=== PATIENT | male | born 1970 | race Caucasian/White ===

== ENCOUNTER 2018-08-27 08:52 | Day surgery (SDC) | payer BC ==
[~2018-08-27 08:52] MED LIST: CEFAZOLIN 1G VIAL IVP ONE; CELECOXIB 100 MG CAPSULE PO ONE; FAMOTIDINE 20MG TABLET PO ONE; MECLIZINE 25 MG TABLET PO ONE; METOCLOPRAMIDE 10 MG TABLET PO ONE; VANCOMYCIN HCL 1,000 MG in DEXTROSE 5 % IN WATER 250 ML IVPB ONE; WATER STERILE FOR INJECTION 20 ML VIAL MC ONE
[2018-08-27] MEDS ORDERED: ALBUTEROL HFA 8 GM INHALER INH ONE (08:53)
[2018-08-27] MEDS ORDERED: LIDOCAINE 2% MDV (20MG/ML) 20ML VIAL IV ONE (08:53)
[2018-08-27] MEDS ORDERED: TRANEXAMIC ACID 1,000 MG/10 ML ML IV ONE (08:53)
[2018-08-27] MEDS ORDERED: PROPOFOL 10 MG/ML VIAL IV ONE (08:53)
[2018-08-27] MEDS ORDERED: FENTANYL PF 100MCG/2ML VIAL IV ONE (08:53)
[2018-08-27] MEDS ORDERED: MIDAZOLAM HCL 2MG/2ML VIAL IV ONE (08:53)
[2018-08-27] MEDS ORDERED: VANCOMYCIN HCL 1,000 MG in DEXTROSE 5 % IN WATER 250 ML IVPB ONE ×2 (09:00)
[2018-08-27] MEDS ORDERED: RINGERS SOLUTION,LACTATED 1,000 ML IV ONE ×3 (09:30→13:02)
[2018-08-27 09:35] LABS: ABO GROUP O; RH TYPE POSITIVE
[2018-08-27 09:36] LABS: ANTIBODY SCREEN NEGATIVE (NEGATIVE)
[2018-08-27] MEDS ORDERED: BUPIVACAINE 0.5% W/EPI MPF 30 ML VIAL SQ ONE (11:26)
[2018-08-27] MEDS ORDERED: BISACODYL 10 MG SUPP RC PRN (13:20)
[2018-08-27] MEDS ORDERED: NALOXONE 0.4 MG/1 ML VIAL IVP PRN (13:20)
[2018-08-27] MEDS ORDERED: KETOROLAC 30 MG/ML VIAL IVP PRN ×2 (13:20)
[2018-08-27] MEDS ORDERED: ACETAMINOPHEN W/ CODEINE 300MG/60MG TABLET PO PRN ×2 (13:20)
[2018-08-27] MEDS ORDERED: ZOLPIDEM TARTRATE 5 MG TABLET PO PRN (13:20)
[2018-08-27] MEDS ORDERED: TRAMADOL HCL 50 MG TABLET PO PRN (13:20)
[2018-08-27] MEDS ORDERED: ONDANSETRON HCL IV 4 MG/2 ML VIAL IVP PRN (13:20)
[2018-08-27] MEDS ORDERED: ACETAMINOPHEN 325 MG TAB PO PRN (13:20)
[2018-08-27] MEDS ORDERED: HYDROMORPHONE HCL 2 MG/ML VIAL IM PRN (13:20)
[2018-08-27] MEDS ORDERED: DIPHENHYDRAMINE HCL 25 MG CAPSULE PO PRN (13:20)
[2018-08-27] MEDS ORDERED: MAGNESIUM HYDROXIDE 30 ML UDC PO PRN (13:20)
[2018-08-27] MEDS ORDERED: HYDROCODONE/APAP 10/325 TABLET PO PRN (13:20)
[2018-08-27] MEDS ORDERED: AL HYDROX/MAG HYDROX 30ML UD PO PRN (13:20)
[2018-08-27] MEDS ORDERED: HYDROMORPHONE HCL 2 MG/ML VIAL IM ONE (13:28)
[2018-08-27] MEDS ORDERED: HYDROMORPHONE HCL 2 MG/ML VIAL IVP ONE (13:28)
[2018-08-27] MEDS ORDERED: CEFAZOLIN 2 Gram 2 GM/50 ML BAG IVPB SCH (13:30)
[2018-08-27] MEDS ORDERED: KETOROLAC 30 MG/ML VIAL IVP ONE (13:42)
[2018-08-27] MEDS: HYDROCODONE/APAP 10/325 TABLET PO PRN ×2 (15:24→19:57)
--- NOTE | 2018-08-27 16:35 | Rehab Evaluation ---
Patient Information - Patient Information Diagnosis: DJD of R Knee Ordered Treatment: PT Evaluate and Treat Status: Initial Evaluation Surgery: Yes (R TKA ) Date of Surgery: 08/27/18 History: Detail Past Medical/Surgical Hx: PAST MEDICAL/SURGICAL HISTORY Past Surgical History rt ACL repair-age 20; left shoulder sx x 2; anesthesia to reduce left shoulder-dislocation x10; spontaneous pneumothorax-not sx; hernia sx age 6 months. PMH - Respiratory Hx Respiratory Disorders No Comment: spontaneous pneumothorax with chest tube 2001 PMH - Cardiovascular Hx Cardiovascular Disorders No Exercise Tolerance Good PMH - Neuro Hx Neurological Disorders Yes Hx Weakness Yes: rt knee only PMH - GI Hx Gastrointestinal Disorders Yes Hx Gastroesophageal Reflux Yes: prilosec for acid reflux PMH - Hx Genitourinary Disorders No PMH - Endocrine Hx Endocrine Disorders No PMH - Musculoskeletal Hx Musculoskeletal Disorders Yes Hx Arthritis Yes: rt knee & lt shoulder PMH - Psych Hx Psychiatric Problems No PMH - Hematology/Oncology Hx Hematology/Oncology No Disorders Premorbid Status: Detail (Patient was independent with all activities. Patient reported that he was active playing baseball and golf.) Social History: Detail (Patient lives in a 2 story home with his significant other, whom was present in patient's room during evaluation. Patient reported that he will not be using both levels immediately after surgery. Patient reports that there are two levels of stairs entering the home. First level consists of 5 steps with 1 railing and a broad landing the levels. The second level of steps consists of 5 steps with bilateral rails. Patient reports that he has a tub/shower combination in his home; however, there are no grab bars present. Patient also has an elevated toilet seat but does not have grab bars near the toilet either. Patient reports that he has a walker, cane, and shower bench to utilize at home. Patient is currently employed and is expected to return back to work within 4-8 weeks. Patient reports that he will be returning home from the hospital in an [facility].) Precautions: Other (weight bearing as tolerated; R lower extremity) - Time With Patient Total Time Spent With Patient (Min): 25 Subjective Information - Subjective Information Per Patient (Patient reported that he was feeling well and did not report any pain during the initial portion of the evaluation. During ambulation patient did report some pain above right knee and reported that it felt musculature.) Objective Data - Mental Status Patient Orientation: Oriented x3 - Visual Perception Appears within normal limits for therapeutic activities - ROM Not within normal limits (Right knee range of motion was limited as expected status post-surgery. All other range of motion in LE were WNL.) - Strength/Tone Not within normal limits (Strength was not assessed due to status post-surgery of right knee. However, functionally assessed with straight leg raise and during ambulation. Patient's left lower extremity functionally was within normal limits due to ambulatory abilities.) - Coordination Appears within normal limits for therapeutic activities - Bed Mobility Independent (Patient required guidance with IV. However, was independent with transfer to and from supine to sitting on left side EOB.) - Transfers Independent (Patient independently transfered to and from sitting left EOB to standing.) - Sensation Intact (Patient's sensation of R LE was assessed. Patient reported all sensation to be WNL.) - Gait Detail (Patient ambulated with 2 wheeled walker, WBAT on R LE, with supervision x1 for safety a total of 240 feet.) Therapy Assessment - Therapy Assessment Detail (Patient did very well with evaluation and showed great endurance and tolerance. Patient would benefit from follow up therapy session to assess healing and progress following surgery prior to discharge for home PT.) Patient Education - Patient Education Teaching Topic: Exercise/Activity (Patient was educated on home exercises of SLR, isometric quad set, and ankle pumps. Patient was educated that he is able to practice these exercises in bed when able to.) Problem List - Problem List Physical Therapy Problem List: Detail (1. Antalgic gait due to status post- surgery, as expected. 2. Limited AROM due to status post-surgery 3. Altered coordination due to compensation for knee pain prior to surgery) Goals - Goals Physical Therapy Goals: 1. Patient will be independent with TKA exercises for home exercise program. 2. Patient will ascend and descend 10 stairs using 1 railing with supervision x1 for safety to help with discharge home. Prognosis - Prognosis Good (Patient did great during evaluation today and appears to be motivated. Patient is expected to continue to progress and regain strength.) Plan - Plan Physical Therapy Plan: Patient would benefit from additional visit for physical therapy prior to discharge for home therapy. Therapy will consist of focusing on education of home exercise program and ensuring that patient knows how to properly complete all exercises independently. Therapy will also focus on ascending and descending stairs to help aide in transition to home.
[2018-08-27] MEDS: POTASSIUM CHLORIDE/D5-0.9%NACL 20 MEQ/1,000 ML BAG IV SCH (19:29)
[2018-08-27] MEDS: CEFAZOLIN 1G VIAL IVP SCH (19:54)
[2018-08-27] MEDS: DOCUSATE SODIUM 100 MG CAPSULE PO SCH (22:38)
[2018-08-28] MEDS: HYDROCODONE/APAP 10/325 TABLET PO PRN ×4 (00:03→13:14)
[2018-08-28] MEDS: POTASSIUM CHLORIDE/D5-0.9%NACL 20 MEQ/1,000 ML BAG IV SCH ×2 (03:00→09:49)
[2018-08-28] MEDS: CEFAZOLIN 1G VIAL IVP SCH ×2 (04:19→11:22)
[2018-08-28 07:00] LABS: HEMATOCRIT 35.1 % (42.0-52.0); HEMOGLOBIN 11.1 gm/dl (14.0-18.0)
[2018-08-28] MEDS ORDERED: PANTOPRAZOLE SODIUM 40 MG TABLET PO SCH (07:00)
[2018-08-28 07:10] LABS: BLOOD UREA NITROGEN 11 mg/dL (6-20); CREATININE 0.8 mg/dL (0.7-1.2); EST GLOMERULAR FILTRATION RATE > 60 mL/min; GLUCOSE,RANDOM 120 mg/dL (74-109)
--- NOTE | 2018-08-28 08:19 | Rehab Evaluation ---
Patient Information - Patient Information Diagnosis: DJD of R Knee Ordered Treatment: OT Evaluate and Treat Status: Initial Evaluation Surgery: Yes (R TKA ) Date of Surgery: 08/27/18 Past Medical/Surgical Hx: PAST MEDICAL/SURGICAL HISTORY Past Surgical History rt ACL repair-age 20; left shoulder sx x 2; anesthesia to reduce left shoulder-dislocation x10; spontaneous pneumothorax-not sx; hernia sx age 6 months. PMH - Respiratory Hx Respiratory Disorders No Comment: spontaneous pneumothorax with chest tube 2001 PMH - Cardiovascular Hx Cardiovascular Disorders No Exercise Tolerance Good PMH - Neuro Hx Neurological Disorders Yes Hx Weakness Yes: rt knee only PMH - GI Hx Gastrointestinal Disorders Yes Hx Gastroesophageal Reflux Yes: prilosec for acid reflux PMH - Hx Genitourinary Disorders No PMH - Endocrine Hx Endocrine Disorders No PMH - Musculoskeletal Hx Musculoskeletal Disorders Yes Hx Arthritis Yes: rt knee & lt shoulder PMH - Psych Hx Psychiatric Problems No PMH - Hematology/Oncology Hx Hematology/Oncology No Disorders Premorbid Status: Detail (Pt was responsible for sharing all home mgmt, meal prep, laundry and yard work with family members.) Social History: Detail (Patient lives in a 2 story home with his spouse and 3 teenage children. Patient reported that he will not be using both levels immediately after surgery. Patient reports that there are two levels of stairs entering the home. First level consists of 5 steps with 1 railing and a broad landing the levels. The second level of steps consists of 5 steps with bilateral rails. Patient reports that he has a tub/shower combination in his home with a seat available; however, there are no grab bars present. Patient also has a standard height toilet seat with a riser but does not have grab bars near the toilet. Patient reports that he has a walker, cane, toilet riser and shower bench to utilize at home. Patient is currently employed and is expected to return back to work within 4-8 weeks.) Precautions: [place], Fall, Other (weight bearing as tolerated; R lower extremity) - Time With Patient Total Time Spent With Patient (Min): 30 Treatment Procedures: Detail (OT eval low complexity) Subjective Information - Subjective Information Per Patient Objective Data - Pain Pain Present: Yes (05/26) - Mental Status Patient Orientation: Oriented x3 - Visual Perception Appears within normal limits for therapeutic activities - ROM Within normal limits (Christian UE AROM WNL) - Strength/Tone Within normal limits (Christian UE strength WNL) - Coordination Appears within normal limits for therapeutic activities - Bed Mobility Independent (Ind with supine to sit) - Transfers Independent (Ind with sit to stand from EOB) - Balance Balance Sitting: Good Balance Standing: Good - Sensation Intact - ADL's/IADL's Detail (Pt educated and able to demonstrate learning of modified LE dressing techniques including doffing briefs and donning underwear, sweatpants and slip on shoes. 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 Reviewed shower and kitchen modifications and safety, pt verbalized understanding.) Therapy Assessment - Therapy Assessment Detail (Pt is Ind with modified LE dressing techniques.) Problem List - Problem List Physical Therapy Problem List: Detail (1. Antalgic gait due to status post- surgery, as expected. 2. Limited AROM due to status post-surgery 3. Altered coordination due to compensation for knee pain prior to surgery) Occupational Therapy Problem List: Detail (No current IP OT problems identified.) Goals - Goals Physical Therapy Goals: 1. Patient will be independent with TKA exercises for home exercise program. 2. Patient will ascend and descend 10 stairs using 1 railing with supervision x1 for safety to help with discharge home. Occupational Therapy Goals: No current IP OT goals identified. Prognosis - Prognosis Good Plan - Plan Physical Therapy Plan: Patient would benefit from additional visit for physical therapy prior to discharge for home therapy. Therapy will consist of focusing on education of home exercise program and ensuring that patient knows how to properly complete all exercises independently. Therapy will also focus on ascending and descending stairs to help aide in transition to home. Occupational Therapy Plan: No further IP OT recommended. Thank you for this referral.
[2018-08-28] MEDS: DOCUSATE SODIUM 100 MG CAPSULE PO SCH (09:51)
[2018-08-28] MEDS ORDERED: FERROUS SULFATE 325 MG TAB PO SCH (10:00)
[2018-08-28] MEDS ORDERED: RIVAROXABAN 10 MG TABLET PO SCH (10:00)
--- NOTE | 2018-08-28 10:10 | Operative Note ---
DATE OF SURGERY: 08/27/2018 PREOPERATIVE DIAGNOSIS: End-stage arthrosis of the right knee. POSTOPERATIVE DIAGNOSIS: End-stage arthrosis of the right knee. OPERATION: 1. Cemented right total knee arthroplasty using Coronel [employer] Nephew components with a size 8 Oxinium femur, a size 7 stem tibia baseplate, a 13 mm lipped highly crosslinked tibial insert, and a 35 mm all plastic patella. 2. Removal of deep buried hardware. STAFF SURGEON: All Hatch MD ANESTHESIA: Spinal. PREPARATION: Chloraprep. INDIVIDUAL CONSIDERATIONS: This was not a standard procedure. The patient had previous surgery which resulted in having abundant scar which made exposure much more difficult. PROCEDURE: The patient was taken to the operating room, placed supine on the operating room table. He had a successful induction of a spinal anesthetic. The right lower extremity was prepped and draped in the usual fashion. The limb was elevated and tourniquet was inflated to 250 mmHg. The patient had a midline approach to the knee. I incorporated the previous incision. Sharp dissection carried down through skin and subcutaneous tissue. Small veins were coagulated with a Bovie. The patient had a screw just medial to the tibial tubercle. Periosteal elevator was used to dissect this out and then easily removed with a washer. Then in a similar fashion, I dissected out the distal screws in the distal femur. The washers were also removed. After everting the patella and flexing the knee, I debrided out the fat pad. Provisional anterior meniscectomies were performed. There was no ACL present. PCL was intact. The initial femoral mapping pilot hole was then made freehand. The intramedullary femoral cutting jig was placed. It was cut in 7 degrees of valgus and adjusted for rotation and secured with pins for a 10 mm resection. The initial transverse cut was then made. The skin guide was placed in the anterior and posterior mapping pilot holes. It was found that a size 8 would be appropriate. The anterior and posterior cuts followed by chamfer cuts were made. Large osteophytes were removed, and a size 8 trial was placed and found to fit well. The tibia was brought forward, and the remainder of the meniscal remnants removed with a Bovie. The extraarticular tibial cutting jig was placed. It was cut in neutral with a 3-degree AP slope. Care was taken to adjusted for rotation and flexion using the extraarticular alignment guide and bony landmarks. Trying to compensate for bone loss, I went ahead and made the cut removing roughly 9 mm of bone off the high lateral side. The guide was secured with pins. Huge osteophytes were removed, and after adjusting for rotation, I could fit a size 7 baseplate trial. It was adjusted for rotation and secured with pins. I eventually used a 13 mm implant. I had to balance ligaments out by slightly loosening the medial collateral to get ligamentous balance. I did this with a knife blade. I went ahead and trialed it with an 8 trial, and there was excellent motion and stability. Femoral mapping pilot holes were impacted and the tri- flange tibial stamp was impacted, and these trial components were removed. The patient had a huge patella and roughly 9 mm of bone was removed freehand. Trimmed off the osteophytes and I was easily able to fit a 35 patella. Tourniquet was let down briefly to get bleeders posteriorly and then placed back up again. The knee was then copiously irrigated out with pulsatile Betadine and saline to remove any visual or palpable debris. Bony surfaces were then dried. A size 7 stem tibia baseplate was cemented into place followed by impaction of the 13 mm lipped tibial insert followed by cementing in the size 8 Oxinium femur followed by cementing in the 35 mm patella. The implant surfaces were compressed, excess cement was removed. After the cement had set, there was excellent motion and stability, ligamentous balance, rotation alignment, and patellofemoral tracking were normal. No lateral release was required. Again thorough irrigation with pulsatile saline and Betadine. Tourniquet was let down. Hemostasis was obtained with a Bovie. The capsule was then closed with a running #2 quill. Prior to this, I infiltrated the skin, subcutaneous tissue, and periosteum with 30 mL of 0.5% Marcaine with epinephrine. The subcu was closed in layers with 0 quill, skin was closed with brent. Then 1 g of tranexamic acid was mixed with 30 mL of saline and injected into the knee through a sterile 18- gauge needle. A sterile bulky compressive RAMIREZ-type dressing was applied. The patient tolerated the procedure well. Needle and sponge counts were correct. Estimated blood loss was 300 mL. He was taken back to recovery in good condition. There were no complications. ABELARDO
--- NOTE | 2018-08-28 11:23 | Physical Therapy Tx Note ---
Physical Therapy Tx Note - Treatment Note Tolerated: Good Total Time Spent With Patient: 30 Physical Therapy Tx Note: Detail (Patient states no complaints of pain in right knee. Patient transferred reclined to sit independently. Patient transferred sit to and from stand SBA x1. Patient ambulated 338 feet with wheeled walker SBA x1. Patient descended and ascended 11 steps with using stairwell railing and walker CGA x1. Patient performed the following exercises x10 reps each seated on edge of bed: ankle pumps, quad sets, glut squeezes, heel slides, LAQ, marching, and hamstring sets. Patient transferred sit to supine independently. Patient tolerated treatment well. Patient displays good understanding of HEP and stair climbing. Patient reports feeling good after treatment. Patient is discharged from inpatient PT at this time as all goals are met.) Physical Therapy Problem List: Detail (1. Antalgic gait due to status post- surgery, as expected. 2. Limited AROM due to status post-surgery 3. Altered coordination due to compensation for knee pain prior to surgery) Physical Therapy Goals: 1. Patient will be independent with TKA exercises for home exercise program. 2. Patient will ascend and descend 10 stairs using 1 railing with supervision x1 for safety to help with discharge home. Prognosis: Good Physical Therapy Plan: Patient discharged from inpatient PT at this time as all goals met.
== END 2018-08-28 13:20 | disposition home health service (06) ==
LOC: SUR 08:52 → MEDSURG 14:03 → SUR 08-28 13:20
PROVIDERS: ATTEND Orthopaedic Surgery
DX: M17.11 Unilateral primary osteoarthritis, right knee (principal); K21.9 Gastro-esophageal reflux disease without esophagitis
CPT/HCPCS: 76942; 80048; 85014; 85018; 86850; 86900; 86901; 97110; 97530; J0690; J1885; J3480; J7060; J7120